=== PATIENT | male | born 1950 | race Caucasian/White ===

== ENCOUNTER 2018-09-11 14:35 | Emergency (ER) | payer MEDICARE ==
--- NOTE | 2018-09-11 15:12 | Event Note ---
ED Screening Note Date of service: 09/11/18 Time: 15:09 ED Screening Note: 68 y/o male comes in for headache and had blurred vision this morning after taking OTC Iron. Patient is currently being treated for TB and in on Isoniazid 300mg . Still have GUTIÉRREZ 8/10. No longer having blurred vision. Took no pain medication. This initial assessment/diagnostic orders/clinical plan/treatment(s) is/are subject to change based on patients health status, clinical progression and re- assessment by fellow clinical providers in the ED. Further treatment and workup at subsequent clinical providers discretion. Patient/guardian urged not to elope from the ED as their condition may be serious if not clinically assessed and managed. Initial orders include:
[2018-09-11 15:13] VITALS: BP 154/82
[2018-09-11] MEDS ORDERED: REGLAN IV ONE (17:32)
[2018-09-11] MEDS ORDERED: BENADRYL IV ONE (17:32)
[2018-09-11] MEDS ORDERED: TYLENOL PO ONE (17:32)
[2018-09-11] MEDS ORDERED: DECADRON IV ONE (17:32)
[2018-09-11] MEDS ORDERED: NACL 0.9% 500 ML 500 ML IV ONE (17:33)
--- NOTE | 2018-09-11 17:40 | Emergency Department Report ---
ED Headache HPI - General Chief Complaint: Headache Stated Complaint: HEADACHE Time Seen by Provider: 09/11/18 15:07 Source: patient - History of Present Illness Initial Comments: Mr. Slaughter is 68 y/o male comes in for headache and had blurred vision this morning after taking OTC Iron. Patient is currently being treated for TB and in on Isoniazid 300mg . Still have GUTIÉRREZ 09/15. denies hx of headache , denies URI no sinusitis or seasonal allergies, there is currenlyt no , he is longer having blurred vision and no photophobia . there is no dizziness no light headedness, no cp no sob no n/v, no Took no pain medication. Timing/Duration: 24 hours Quality: moderate Head Injury Location: frontal Recent Head Trauma: no recent headache/trauma Associated Symptoms: denies: confusion, fatigue, facial pain, fever/chills, flushing, loss of consciousness, nausea/vomiting, nasal congestion, nasal drainage, numbness in legs/feet, rash, seizures, sinus infection, stiff neck, weakness Allergies/Adverse Reactions: Allergies No Known Allergies Allergy (Unverified 09/11/18 14:48) Home Medications: Ambulatory Orders Acetaminophen [Acetaminophen TAB] 1,000 mg PO Q6HR PRN #30 tablet 09/11/18 Metoclopramide [Reglan] 10 mg PO Q6H PRN #30 tablet 09/11/18 diphenhydrAMINE [Benadryl CAP] 25 mg PO Q6HR PRN #30 capsule 09/11/18 ED Review of Systems ROS: Stated complaint: HEADACHE Other details as noted in HPI Constitutional: denies: chills, fever Eyes: denies: eye pain, eye discharge, vision change ENT: denies: ear pain, throat pain Respiratory: denies: cough, shortness of breath, wheezing Cardiovascular: denies: chest pain, palpitations Endocrine: no symptoms reported Gastrointestinal: denies: abdominal pain, nausea, diarrhea Genitourinary: denies: urgency, dysuria Musculoskeletal: denies: back pain, joint swelling, arthralgia Skin: denies: rash, lesions Neurological: headache. denies: weakness, numbness, paresthesias, confusion, abnormal gait, vertigo Psychiatric: denies: anxiety, depression Hematological/Lymphatic: denies: easy bleeding, easy bruising ED Past Medical Hx - Past Medical History Previous Medical History?: Yes Additional medical history: Hepatitis B - Surgical History Past Surgical History?: No - Social History Smoking Status: Never Smoker Substance Use Type: None - Medications Home Medications: Home Medications Medication Instructions Recorded Confirmed Last Taken Type Acetaminophen [Acetaminophen TAB] 1,000 mg PO Q6HR PRN #30 tablet 09/11/18 Unknown Rx Metoclopramide [Reglan] 10 mg PO Q6H PRN #30 tablet 09/11/18 Unknown Rx diphenhydrAMINE [Benadryl CAP] 25 mg PO Q6HR PRN #30 capsule 09/11/18 Unknown Rx ED Physical Exam - General Limitations: No Limitations General appearance: alert, in no apparent distress - Head Head exam: Present: normocephalic, normal inspection - Expanded Head Exam Expanded Head exam: Absent: general tenderness, tenderness of temporal artery - Eye Eye exam: Present: normal appearance, PERRL, EOMI. Absent: conjunctival injection, nystagmus Pupils: Present: normal accommodation, other (no eye pain visual acuity 20/40 bilat, 20/20 with glasses ) - ENT ENT exam: Present: normal orophraynx, mucous membranes moist, TM's normal bilaterally, normal external ear exam - Neck Neck exam: Present: normal inspection, full ROM. Absent: tenderness, meningismus, lymphadenopathy, thyromegaly - Expanded Neck Exam Expanded Neck exam: Absent: tenderness, midline deformity, anterior neck swelling, thyroid mass, carotid bruit, tracheal deviation - Respiratory Respiratory exam: Present: normal lung sounds bilaterally. Absent: respiratory distress, wheezes, stridor, chest wall tenderness - Cardiovascular Cardiovascular Exam: Present: regular rate, normal rhythm, normal heart sounds. Absent: systolic murmur, diastolic murmur, rubs, gallop - GI/Abdominal GI/Abdominal exam: Present: soft, normal bowel sounds. Absent: distended, tenderness, bruit, hernia - Rectal Rectal exam: Present: deferred - Extremities Exam Extremities exam: Present: normal inspection, full ROM, normal capillary refill. Absent: tenderness, pedal edema, joint swelling, calf tenderness - Back Exam Back exam: Present: normal inspection, full ROM. Absent: tenderness, CVA tenderness (R), CVA tenderness (L), vertebral tenderness, rash noted - Neurological Exam Neurological exam: Present: alert, oriented X3, CN II-XII intact, normal gait, reflexes normal. Absent: motor sensory deficit - Expanded Neurological Exam Expanded Patient oriented to: Present: person, place, time Speech: Present: fluid speech Cranial nerves: EOM's Intact: Normal, Gag Reflex: Normal, Tongue Deviation: Normal, Nystagmus: Normal, Facial Sensation: Normal Cerebellar function: Finger to Nose: Normal, Heel to Mitchell: Normal Upper motor neuron: Alvarado Neglect: Normal, Pronator Drift: Normal, Babinski Sign: Normal, Sensory Extinction: Normal Motor strength exam: RUE: 5, LUE: 5, RLE: 5, LLE: 5 DTR: bicep (R): 2+, bicep (L): 2+, ankle (R): 2+, ankle (L): 2+ Best Eye Response (Silvia): (1) no response Best Motor Response (Sherman): (6) obeys commands Best Verbal Response (Sherman): (5) oriented Silvia Total: 12 - Psychiatric Psychiatric exam: Present: normal affect, normal mood - Skin Skin exam: Present: warm, dry, intact, normal color. Absent: rash ED Course Vital Signs 09/11/18 09/11/18 09/11/18 15:07 17:55 18:13 Temperature 98.0 F Pulse Rate 103 H Respiratory 16 15 16 Rate Blood Pressure 154/82 O2 Sat by Pulse 95 Oximetry ED Medical Decision Making - Radiology Data Radiology results: report reviewed, image reviewed Ordering Physician: COLLIN NOWAK Date of Service: 09/11/18 Procedure(s): CT head/brain wo con Accession Number(s): [id number] cc: COLLIN NOWAK CT head/brain wo con INDICATION / CLINICAL INFORMATION: 68 years Male; HEADACHE AND BLURRED VISION. TECHNIQUE: Routine CT head without contrast. All CT scans at this location are performed using CT dose reduction for ALARA by means of automated exposure control. COMPARISON: None. FINDINGS: BRAIN / INTRACRANIAL CONTENTS: No acute hemorrhage, mass effect, midline shift, hydrocephalus, or acute, large territorial infarct. No chronic infarct or focal atrophy. Normal brain volume and ventricular/sulcal size for age. No significant white matter abnormality. CRANIOCERVICAL JUNCTION: No significant abnormality. ORBITS: No significant abnormality of visualized orbits. SINUSES / MASTOIDS: Minimal mucosal thickening seen in the ethmoids. Right mastoid region is underdeveloped. ADDITIONAL FINDINGS: None. IMPRESSION: 1. No focal mass, hemorrhage, hydrocephalus, or acute, large territorial infarct. Signer Name: Theodore Nayak MD, III Signed: 09/11/2018 6:13 PM Workstation Name: [id number] Transcribed By: HR Dictated By: Theodore Nayak MD Electronically Authenticated By: Theodore Nayak MD Signed Date/Time: 09/11/181812 DD/ 11 TD/TT: - Medical Decision Making CT head normal, headache is resolved plan dc to home with rx for tylenol, benadryl, and reglan ,pt dc'd to home in stable conditions, pt is currently a/o x 3 ambulatory with steady gait at this time no headache no eye pain no dizziness no light headedness Critical care attestation.: If time is entered above; I have spent that time in minutes in the direct care of this critically ill patient, excluding procedure time. ED Disposition Clinical Impression: Headache Qualifiers: Headache type: unspecified Headache chronicity pattern: acute headache Intractability: not intractable Qualified Code(s): R51 - Headache Disposition: DC-01 TO HOME OR SELFCARE Is pt being admited?: No Does the pt Need Aspirin: No Condition: Stable Instructions: Acute Headache (ED) Prescriptions: Acetaminophen [Acetaminophen TAB] 1,000 mg PO Q6HR PRN #30 tablet PRN Reason: Headache diphenhydrAMINE [Benadryl CAP] 25 mg PO Q6HR PRN #30 capsule PRN Reason: Headache Metoclopramide [Reglan] 10 mg PO Q6H PRN #30 tablet PRN Reason: Headache Referrals: FLORY RANDOLPH MD [Primary Care Provider] - 3-5 Days Forms: Work/School Release Form(ED) Time of Disposition: 20:17
--- NOTE | 2018-09-11 18:17 | Cat Scan Report ---
CT head/brain wo con INDICATION / CLINICAL INFORMATION: 68 years Male; HEADACHE AND BLURRED VISION. TECHNIQUE: Routine CT head without contrast. All CT scans at this location are performed using CT dos e reduction for ALARA by means of automated exposure control. COMPARISON: None. FINDINGS: BRAIN / INTRACRANIAL CONTENTS: No acute hemorrhage, mass effect, midline shift, hydrocephalus, or acu te, large territorial infarct. No chronic infarct or focal atrophy. Normal brain volume and ventricul ar/sulcal size for age. No significant white matter abnormality. CRANIOCERVICAL JUNCTION: No significant abnormality. ORBITS: No significant abnormality of visualized orbits. SINUSES / MASTOIDS: Minimal mucosal thickening seen in the ethmoids. Right mastoid region is underdev eloped. ADDITIONAL FINDINGS: None. IMPRESSION: 1. No focal mass, hemorrhage, hydrocephalus, or acute, large territorial infarct. Signer Name: Theodore Nayak MD, III Signed: 09/11/2018 6:13 PM Workstation Name: [id number]
== END 2018-09-11 20:28 | disposition home or self-care (01) ==
LOC: ED 14:35
DX: R51 Headache (principal); B19.10 Unspecified viral hepatitis B without hepatic coma; Z79.899 Other long term (current) drug therapy
CPT/HCPCS: 70450; 96374; 96375; 99283; J1100; J1200; J2765; J7040

== ENCOUNTER 2018-10-05 06:27 | Day surgery (SDC) | payer MEDICARE ==
[2018-10-05 07:25] LABS: Hematocrit 36.5 % (35.5-45.6); Hemoglobin 11.7 gm/dl (11.8-15.2); Mean Corpuscular HGB Conc 32 % (32-34); Mean Corpuscular Volume 64 fl (84-94); Platelet Count 158 K/mm3 (140-440); Red Blood Count 5.71 M/mm3 (3.65-5.03)
[2018-10-05 07:35] LABS: INR 1.06 (0.87-1.13)
[2018-10-05 07:36] LABS: Partial Thromboplastin Time 33.2 Sec. (24.2-36.6)
[2018-10-05] MEDS ORDERED: ZOFRAN ONE (08:07)
[2018-10-05] MEDS ORDERED: DILAUDID ONE (08:07)
[2018-10-05] MEDS ORDERED: DILAUDID IV NR (09:30)
[2018-10-05] MEDS ORDERED: ZOFRAN IV NR (09:30)
--- NOTE | 2018-10-05 12:03 | Cat Scan Report ---
CT-guided liver biopsy INDICATION : viral hep B; nausea, dyspepsia. COMPARISON: None PROCEDURE: The risks (including but not limited to bleeding and infection) and benefits were explain ed to the patient and informed consent was obtained. All CT scans at this location are performed usi ng CT dose reduction for ADELIARA by means of automated exposure control. A time out procedure was performed. The procedure site was prepped and draped in the usual sterile f ashion and lidocaine was used for local anesthesia. Under CT guidance, a 19-gauge coaxial needle was advanced to the peripheral margin of the posterior h epatic segment in the right lobe of the liver. A 20-gauge biopsy needle was then used to obtain 2 sep arate 2 cm samples. Samples were placed directly in formalin and sent to pathology for further evalua tion. An immediate postprocedure scan showed no complication. The patient tolerated the procedure well with no complications. IMPRESSION: Successful CT-guided liver biopsy as above. Signer Name: Jasen Aguila MD Signed: 10/05/2018 11:59 AM Workstation Name: [id number]
[2018-10-05 12:30] VITALS: BP 120/73
== END 2018-10-05 12:15 | disposition home or self-care (01) ==
LOC: CATHLABREC 06:27 → EDSTATUS 08:30 → CATHLABREC 12:15
PROVIDERS: ATTEND Student in an Organized Health Care Education/Training Program
DX: K75.89 Other specified inflammatory liver diseases (principal); B18.1 Chronic viral hepatitis B without delta-agent; Z79.899 Other long term (current) drug therapy
CPT/HCPCS: 36415; 47000; 77012; 85027; 85610; 85730; 88307; J1170; J2405; 88312; 88342

== ENCOUNTER 2020-12-28 09:34 | Emergency (ER) | payer MEDICARE ==
--- NOTE | 2020-12-28 10:01 | Emergency Department Report ---
ED Male HPI - General Chief complaint: Urogenital-Male Stated complaint: Painful urination, urinary hesitancy Time Seen by Provider: 12/28/20 09:58 Source: patient, RN notes reviewed Mode of arrival: Ambulatory Limitations: No Limitations - History of Present Illness Initial comments: The patient is a 70-year-old gentleman, who does not have a local primary care doctor, who reports a history of hepatitis B. He states he does not take prescription medications. He presents to the ER today with a complaint of suprapubic distention, urinary hesitancy, dribbling, and intermittent painful urination. He denies additional symptoms or complaints. His symptoms were improved with placement of a Yancey catheter. He denies testicular pain. This is never happened to him before. He attempted [id number]-[id number] medications, which were unsuccessful. MD Complaint: other (Urinary hesitancy, frequency and dribbling.) -: Gradual, hour(s) Radiation: none Severity: moderate Improves with: other (Placement of Yancey catheter) new medication swelling (Abdominal swelling), urinary retention, dysuria. denies: blood in urine - Related Data Home Medications Medication Instructions Recorded Confirmed Last Taken Isoniazid 1 tab PO DAILY 10/05/18 10/05/18 09/28/18 rifAMPin [Rifadin] 1 cap PO BID 10/05/18 10/05/18 09/28/18 Allergies Allergy/AdvReac Type Severity Reaction Status Date / Time No Known Allergies Allergy Unverified 09/11/18 14:48 ED Review of Systems ROS: Stated complaint: painful urination Other details as noted in HPI Constitutional: denies: fever Eyes: denies: eye discharge ENT: denies: epistaxis Respiratory: denies: cough Cardiovascular: denies: chest pain Gastrointestinal: abdominal pain (Lower abdominal pain), other (Denies dyschezia). denies: nausea, vomiting, hematemesis, melena, hematochezia Genitourinary: denies: testicular pain Musculoskeletal: denies: back pain Hematological/Lymphatic: denies: easy bleeding ED Past Medical Hx - Past Medical History Hx Tuberculosis: No (denies but taking TB medications) Hx HIV: No Additional medical history: Hepatitis B - Social History Smoking Status: Never Smoker - Medications Home Medications: Home Medications Medication Instructions Recorded Confirmed Last Taken Type Isoniazid 1 tab PO DAILY 0810/05/18 09/28/18 History rifAMPin [Rifadin] 1 cap PO BID 10/05/18 10/05/18 09/28/18 History ED Physical Exam - General Limitations: No Limitations General appearance: alert, in no apparent distress - Head Head exam: Present: atraumatic, normocephalic - Eye Eye exam: Present: normal appearance, EOMI. Absent: nystagmus - ENT ENT exam: Present: normal exam, normal orophraynx, mucous membranes moist, normal external ear exam - Neck Neck exam: Present: normal inspection, full ROM. Absent: tenderness, meningismus - Respiratory Respiratory exam: Present: normal lung sounds bilaterally. Absent: respiratory distress, wheezes, rales, rhonchi, stridor, decreased breath sounds - Cardiovascular Cardiovascular Exam: Present: regular rate, normal rhythm, normal heart sounds. Absent: bradycardia, tachycardia, irregular rhythm, systolic murmur, diastolic murmur, rubs, gallop - GI/Abdominal GI/Abdominal exam: Present: soft, distended (There is suprapubic distention noted. There is suprapubic tenderness noted.). Absent: tenderness, guarding, rebound, rigid, pulsatile mass - Rectal Rectal exam: Present: deferred - exam: Present: normal inspection, other (There is normal testicular lie. There is normal cremasteric reflex. There is no testicular tenderness. There is no testicular swelling) External exam: Present: normal external exam - Extremities Exam Extremities exam: Present: normal inspection, full ROM, other (2+ pulses noted in the bilateral upper and lower extremities. There is no palpable cord. negative Homans sign. Muscular compartments are soft. The pelvis is stable.). Absent: pedal edema, joint swelling, calf tenderness - Back Exam Back exam: Present: normal inspection, full ROM. Absent: tenderness, CVA tenderness (R), CVA tenderness (L), paraspinal tenderness, vertebral tenderness - Neurological Exam Neurological exam: Present: alert, oriented X3, normal gait, other (No facial droop. Tongue midline. Extraocular movements intact bilaterally. Facial sensation intact to light touch in V1, V2, V3 distribution bilaterally. 5 and a 5 strength in 4 extremities. Sensation intact to light touch in 4 extremities.). Absent: motor sensory deficit - Psychiatric Psychiatric exam: Present: normal affect, normal mood - Skin Skin exam: Present: warm, dry, intact, normal color. Absent: rash ED Course Vital Signs 12/28/20 12/28/20 12/28/20 09:40 11:05 11:09 Temperature 98.2 F Pulse Rate 73 64 Respiratory 16 20 20 Rate Blood Pressure 111/70 Blood Pressure 150/69 [Left] O2 Sat by Pulse 98 99 99 Oximetry ED Medical Decision Making - Lab Data Result diagrams: 12/28/20 10:02 12/28/20 10:02 Vital Signs 12/28/20 12/28/20 12/28/20 09:40 11:05 11:09 Temperature 98.2 F Pulse Rate 73 64 Respiratory 16 20 20 Rate Blood Pressure 111/70 Blood Pressure 150/69 [Left] O2 Sat by Pulse 98 99 99 Oximetry Lab Results 12/28/20 12/28/20 12/28/20 Range/Units 10:02 10:02 11:04 WBC 4.0 L (4.5-11.0) K/mm3 RBC 5.92 H (3.65-5.03) M/mm3 Hgb 11.4 L (11.8-15.2) gm/dl Hct 37.7 (35.5-45.6) % MCV 64 L (84-94) fl MCH 19 L (28-32) pg MCHC 30 L (32-34) % RDW 15.6 H (13.2-15.2) % Plt Count 129 L (140-440) K/mm3 Sodium 137 (137-145) mmol/L Potassium 3.6 (3.6-5.0) mmol/L Chloride 101.1 (98-107) mmol/L Carbon Dioxide 24 (22-30) mmol/L Anion Gap 16 mmol/L BUN 16 (9-20) mg/dL Creatinine 0.7 L (0.8-1.3) mg/dL Estimated GFR > 60 ml/min BUN/Creatinine Ratio 23 % Glucose 99 (75-100) mg/dL Calcium 8.6 (8.4-10.2) mg/dL Magnesium 2.00 (1.7-2.3) mg/dL Urine Color Straw (Yellow) Urine Turbidity Clear (Clear) Urine pH 7.0 (5.0-7.0) Ur Specific [place] 1.006 (1.003-1.030) Urine Protein <15 mg/dl (Negative) mg/dL Urine Glucose (UA) Neg (Negative) mg/dL Urine Ketones Neg (Negative) mg/dL Urine Blood Mod (Negative) Urine Nitrite Neg (Negative) Urine Bilirubin Neg (Negative) Urine Urobilinogen < 2.0 (<2.0) mg/dL Ur Leukocyte Esterase Neg (Negative) Urine WBC (Auto) < 1.0 (0.0-6.0) /HPF Urine RBC (Auto) 3.0 (0.0-6.0) /HPF - Medical Decision Making Differential diagnosis, including but not limited to: Urinary retention, BPH, prostate cancer, urinary tract infection Assessment and plan: 70-year-old gentleman, who was afebrile, with reassuring vital signs, who presents with abdominal distention, difficulty urinating, bedside [id number] ultrasound shows distended fluid-filled bladder, Yancey catheter placed, drained approximately 500 cc of clear yellow urine, patient endorsed improvement in symptoms. He has been observed in this department for a few hours without clinical deterioration. Have not observed postobstructive diuresis. Leukopenia, thrombocytopenia likely secondary to chronic liver disease. Patient does not appear to be acutely emergently decompensated in this capacity. Discharged with Yancey catheter leg bag, outpatient follow-up with urology for further outpatient work-up and evaluation, outpatient primary care follow-up for thrombocytopenia/leukopenia. Critical care attestation.: If time is entered above; I have spent that time in minutes in the direct care of this critically ill patient, excluding procedure time. ED Disposition Clinical Impression: Urinary retention, Thrombocytopenia Disposition: 01 HOME / SELF CARE / HOMELESS Is pt being admited?: No Does the pt Need Aspirin: No Condition: Good Instructions: Acute Urinary Retention, Male, [id number] Additional Instructions: Do not take Motrin, ibuprofen, Naprosyn, Aleve. Do not consume alcohol. Minimize/avoid consumption of Tylenol/acetaminophen. Cultures were sent today, and results would be available in the next 3 to 5 days. Please have your primary care doctor contact the medical record department to obtain culture results. Please follow-up with a primary care doctor within the next 5 to 7 days for repeat checkup and evaluation. Please have your primary care doctor contact medical records department to obtain copies of laboratory studies. Patient was found to have urinary retention/obstruction today. He will be discharged with a Yancey catheter to leg bag. It is important to follow-up with an outpatient urologist, such as those that work at [facility], for outpatient follow-up, to exclude prostate cancer, tumor, malignancy, and rule in/rule out BPH/enlarged prostate, versus prostate cancer. Please return to the emergency room right away with new pain, worsened pain, migration of pain, projectile vomiting, change in mental status, confusion, inability to tolerate liquid feeds, new, worsened or different symptoms not present on the initial emergency room evaluation Referrals: PRIMARY CARE, [Primary Care Provider] - 3-5 Days [facility] [Provider Group] - 3-[address] [facility] [Provider Group] - 3-5 Days
[2020-12-28 10:43] LABS: Mean Corpuscular HGB Conc 30 % (32-34); Platelet Count 129 K/mm3 (140-440); Red Blood Count 5.92 M/mm3 (3.65-5.03); Red Cell Distribution Width 15.6 % (13.2-15.2)
[2020-12-28 11:01] LABS: Blood Urea Nitrogen 16 mg/dL (9-20); Calcium 8.6 mg/dL (8.4-10.2); Hemolysis Index 4
[2020-12-28 11:02] LABS: BUN/Creatinine Ratio 23
[2020-12-28 11:09] LABS: Hemoglobin 11.4 gm/dl (11.8-15.2)
[2020-12-28 11:10] LABS: Hematocrit 37.7 % (35.5-45.6); Mean Corpuscular Volume 64 fl (84-94)
[2020-12-28 11:33] LABS: Bilirubin,Urine NEG (Negative); Blood,Urine MOD (Negative); Color,Urine Straw (Yellow); Protein,Urine <15 mg/dL mg/dL (Negative); Urobilinogen,Urine < 2.0 mg/dL (<2.0); WBC,Urine < 1.0 /HPF (0.0-6.0)
[2020-12-28 13:02] VITALS: BP 119/64
== END 2020-12-28 13:01 | disposition home or self-care (01) ==
LOC: ED 09:34
DX: R33.9 Retention of urine, unspecified (principal); D69.6 Thrombocytopenia, unspecified; Z86.19 Personal history of other infectious and parasitic diseases
CPT/HCPCS: 36415; 51702; 80048; 81001; 83735; 85027; 87086